=== PATIENT | female | born 1995 | race Asian ===

== ENCOUNTER 2020-06-13 12:29 | Emergency (ER) | payer OTHER ==
[2020-06-13 12:35] VITALS: BP 133/83; PULSE 69; TEMP 98; BMI 23.2
== END 2020-06-13 13:57 | disposition home or self-care (01) ==
LOC: JER 12:29
DX: R10.9 Unspecified abdominal pain (principal); Z11.52 Encounter for screening for COVID-19
CPT/HCPCS: 99283-25; C9803; U0003